=== PATIENT | female | born 1955 | race African-American/Black ===

== ENCOUNTER 2017-11-02 08:39 | Inpatient (IN) | payer OTHER ==
[2017-10-25 17:31] VITALS: BMI 43.4
--- NOTE | 2017-11-02 09:26 | HP ---
HISTORY OF PRESENT ILLNESS Patient is a 61 y/o female with a past medical history of hypertension and osteoarthritis. Patient was admitted today, 11/01/16, for an elective total knee replacement, Dr Hager. PCP: Dr Mccabe Recent travel: none Family History:non contributory to this admission Social History:none Smoking: none Alcohol:none Drugs: none REVIEW OF SYSTEMS CONSTITUTIONAL: Absent: fever, chills, diaphoresis, generalized weakness, malaise, loss of appetite, weight change HEENT: Absent: rhinorrhea, nasal congestion, throat pain, throat swelling, difficulty swallowing, mouth swelling, ear pain, eye pain, visual changes CARDIOVASCULAR: Absent: chest pain, syncope, palpitations, irregular heart rate, lightheadedness , peripheral edema RESPIRATORY: Absent: cough, shortness of breath, dyspnea with exertion, orthopnea, wheezing, stridor, hemoptysis GASTROINTESTINAL: Absent: abdominal pain, abdominal distension, nausea, vomiting, diarrhea, constipation, melena, hematochezia GENITOURINARY: Absent: dysuria, frequency, urgency, hesitancy, hematuria, flank pain, genital pain MUSCULOSKELETAL: Present: left knee pain Absent: myalgia, arthralgia, joint swelling, back pain, neck pain SKIN: Absent: rash, itching, pallor HEMATOLOGIC/IMMUNOLOGIC: Absent: easy bleeding, easy bruising, lymphadenopathy, frequent infections ENDOCRINE: Absent: unexplained weight gain, unexplained weight loss, heat intolerance, cold intolerance NEUROLOGIC: Absent: headache, focal weakness or paresthesias, dizziness, unsteady gait, seizure, mental status changes, bladder or bowel incontinence PSYCHIATRIC: Absent: anxiety, depression, suicidal or homicidal ideation, hallucinations. PHYSICAL EXAMINATION: GENERAL: Awake, alert, and fully oriented, in no acute distress. HEAD: Normal with no signs of trauma. EYES: Pupils equal, round and reactive to light, extraocular movements intact, sclera anicteric, conjunctiva clear. No lid lag. EARS, NOSE, THROAT: Ears normal, nares patent, oropharynx clear without exudates. Moist mucous membranes. NECK: Normal range of motion, supple without lymphadenopathy, JVD, or masses. LUNGS: Breath sounds equal, clear to auscultation bilaterally. No wheezes, and no crackles. No accessory muscle use. HEART: Regular rate and rhythm, normal S1 and S2 without murmur, rub or gallop. ABDOMEN: Soft, nontender, not distended, normoactive bowel sounds, no guarding, no rebound, no masses. No hepatomegaly or splenomegaly. MUSCULOSKELETAL: Normal range of motion at all joints. No bony deformities or tenderness. No CVA tenderness. UPPER EXTREMITIES: 2+ pulses, warm, well-perfused. No cyanosis. No clubbing. No peripheral edema. LOWER EXTREMITIES: 2+ pulses, warm, well-perfused. No calf tenderness. No peripheral edema. NEUROLOGICAL: Cranial nerves II-XII intact. Normal speech. Normal gait. PSYCHIATRIC: Cooperative. Good eye contact. Appropriate mood and affect. SKIN: Warm, dry, normal turgor, no rashes or lesions noted, normal capillary refill. ASSESSMENT/PLAN: F/E/N - npo, pending OR PPX - mechanical AC, hold chemical AC for OR Problem List - Problem (1) Osteoarthritis of knee Assessment/Plan: - pending OR today, Dr Hager Code(s): M17.10 - UNILATERAL PRIMARY OSTEOARTHRITIS, UNSPECIFIED KNEE (2) Hypertension Assessment/Plan: - continue metoprol and chloritadone, strict b/p monitoring, q4h Code(s): I10 - ESSENTIAL (PRIMARY) HYPERTENSION Visit type - Case Type Case Type: Scheduled Admission - Emergency Emergency Visit: No - New patient This patient is new to me today: Yes Date on this admission: 11/02/17 - Critical Care Critical Care patient: No
[2017-11-02] MEDS ORDERED: KETOROLAC TROMETHAMINE 30 MG/1 ML VIAL ONE (10:01)
[2017-11-02] MEDS ORDERED: DEXAMETHASONE SOD PHOSPHATE 4 MG/1 ML VIAL ONE (10:01)
[2017-11-02] MEDS ORDERED: ONDANSETRON 4 MG/2 ML VIAL ONE (10:01)
[2017-11-02] MEDS ORDERED: LIDOCAINE HCL/PF 2% SDV 5ML VIAL ONE (10:01)
[2017-11-02] MEDS ORDERED: PROPOFOL 20 ML ONE ×3 (10:02→13:39)
[2017-11-02] MEDS ORDERED: SUCCINYLCHOLINE CHLORIDE 200 MG/10 ML VIAL ONE (10:02)
[2017-11-02] MEDS ORDERED: MIDAZOLAM HCL 2 MG/2 ML SINGLE DOSE VIAL ONE ×2 (10:13→12:11)
[2017-11-02] MEDS ORDERED: BUPIVACAINE LIPOSOME/PF (EXPAREL) 266 MG/20 ML VIAL ONE (10:13)
[2017-11-02] MEDS ORDERED: BUPIVACAINE HCL/PF 2.5 MG/ML - 30 ML VIAL IJ ONE (10:14)
[2017-11-02] MEDS ORDERED: SODIUM CHLORIDE 0.9% P/F 10 ML VIAL IJ ONE (10:15)
[2017-11-02] MEDS ORDERED: DEXAMETHASONE SOD PHOSPHATE/PF 10 MG/ML SDV ONE (10:19)
[2017-11-02] MEDS ORDERED: ceFAZolin SODIUM 1 GM VIAL ONE (12:23)
[2017-11-02] MEDS ORDERED: ePHEDrine SULFATE 50 MG/1 ML AMPULE ONE (12:25)
[2017-11-02] MEDS ORDERED: TRANEXAMIC ACID 1000 MG/10 ML VIAL ONE (12:35)
[2017-11-02] MEDS ORDERED: VANCOMYCIN 1,000 MG VIAL (RESTRICTED TO ID ONLY) ONE (13:39)
[2017-11-02] MEDS ORDERED: BENZOIN/ALOE VERA/STORAX/TOLU 58 ML BOTTLE ONE (14:52)
--- NOTE | 2017-11-02 15:11 | OP ---
Operative Note - Note: Operative Date: 11/02/17 Pre-Operative Diagnosis: Left knee DJD Operation: Left total knee replacement Implants: [employer] - Cemented. Femur - 4. Tibia - 5. Poly - 9mm, PS. Patella - 27mm Surgeon: Car Hager Supervisor [employer]: Jef Hager (Co-Surgeon) Anesthesiologist/THIMBLE PRESS OPERATOR: Yefri Wood Anesthesia: Spinal, Epidural Specimens Removed: Bone, soft tissue Estimated Blood Loss (mls): 75 Drains & Tubes with Location: 1 x deep HemoVac Operative Report Dictated: Yes
[2017-11-02] MEDS ORDERED: MAGNESIUM HYDROX 2400MG/30ML ORAL SUSPENSION 30 ML CUP PO PRN (15:12)
[2017-11-02] MEDS ORDERED: ONDANSETRON 4 MG/2 ML VIAL IVPUSH PRN (15:12)
[2017-11-02] MEDS ORDERED: VANCOMYCIN 1 GRAM (PRE-DOCKED) 1,000 MG/250 ML BAG IVPB ONE (15:12)
[2017-11-02] MEDS ORDERED: MAG HYDROX/AL HYDROX/SIMETH 30 ML UNIT-DOSE CUP PO PRN (15:12)
[2017-11-02] MEDS ORDERED: LACTATED RINGERS SOLUTION 1,000 ML IV SCH (15:15)
[2017-11-02] MEDS ORDERED: oxyCODONE HCL 5 MG TABLET PO PRN (15:41)
[2017-11-02] MEDS ORDERED: ACETAMINOPHEN 325 MG TABLET (FP) ONE (16:08)
[2017-11-02] MEDS: ACETAMINOPHEN 325 MG TABLET (FP) PO SCH ×2 (16:38→21:50)
--- NOTE | 2017-11-02 18:40 | PN ---
Progress Note (short form) - Note Progress Note: 61F s/p L TKA POD #0. -Pain control. -DVT PPx: Chemical - ASA EC 81mg PO BID, Mechanical - MICHAEL's, SCD's. -Incentive spirometry/pulmonary toilet. -PT/OR/Rehab, OOB. -WBAT LLE. -(+) ice machine. -(+) CPM. -f/u TOV. -Diet as tolerated. -Taty-op Abx. -Care per medical hospitalist team. -d/c planning.
[2017-11-02] MEDS: oxyCODONE HCL 5 MG TABLET PO PRN (21:49)
[2017-11-02] MEDS: ASPIRIN 81 MG CHEWABLE TABLETS PO SCH (21:49)
[2017-11-02] MEDS: oxyCODONE HCL 10 MG SUSTAINED ACTING TABLET PO SCH (21:51)
[2017-11-02] MEDS: CEFAZOLIN 2 GM/D5W 2 GM/50 ML ML IVPB SCH (21:53)
[2017-11-02] MEDS: SENNOSIDES/DOCUSATE COMBO (SENNA PLUS) TABLET (UD) PO SCH (21:54)
[2017-11-03] MEDS ORDERED: VANCOMYCIN 1 GRAM (PRE-DOCKED) 1,000 MG/250 ML BAG IVPB ONE (01:00)
[2017-11-03] MEDS: ACETAMINOPHEN 325 MG TABLET (FP) PO SCH ×4 (03:45→22:17)
[2017-11-03] MEDS: oxyCODONE HCL 5 MG TABLET PO PRN ×3 (05:28→22:18)
[2017-11-03 08:16] LABS: HEMATOCRIT 38.6 % (32.4-45.2); HEMOGLOBIN 12.6 GM/dl (10.7-15.3); MCH 26.6 pg (25.7-33.7); MCHC 32.7 g/dl (32.0-36.0); MEAN CELL VOLUME 81.5 fl (80-96); MEAN PLT VOLUME 8.5 fl (7.5-11.1); PLATELET COUNT 249 K/MM3 (134-434); RBC 4.74 M/mm3 (3.60-5.2); RDW 13.4 % (11.6-15.6); WHITE BLOOD COUNT 16.1 K/mm3 (4.0-10.8)
--- NOTE | 2017-11-03 08:24 | OP ---
DATE OF OPERATION: 11/02/2017 SURGEON: Car Hager MD CO-SURGEON: Jef Hager MD PREOPERATIVE DIAGNOSIS: Tricompartment osteoarthritis, left knee. POSTOPERATIVE DIAGNOSIS: Tricompartment osteoarthritis, left knee. OPERATION PERFORMED: Left cemented, posterior-stabilized total knee arthroplasty (Elissa). ANESTHESIA: Spinal epidural with conscious sedation. ANTIBIOTICS GIVEN: Kefzol 2 g, vancomycin 1 g, Kefzol 1 g at the time of release of the tourniquet. OPERATION DETAILS: Patient correctly identified, brought to the operating room. Left lower extremity was prepped free, draped in the routine manner with Betadine scrub solution, wiped off with alcohol, DuraPrep applied. Imaging was available for intraoperative evaluation. Timeout was called. Under a bloodless field, a midline incision was performed, centered over the knee. The dissection was taken through subcutaneous tissue to the anterior musculature and parapatellar tissues on the medial side. A longitudinal incision made in the quadriceps tendon. This was carried around the medial aspect of the patella and the parapatellar tissues, right down to the medial aspect of the tibial tubercle. The patella was capsized laterally. The proximal tibial surface was freed of soft tissue neatly with a knife. Hohmann retractor was placed behind the cruciate ligaments after transection of the cruciate ligaments, subluxing the tibia forwards. A Hohmann was placed under the lateral meniscus to gain easy access to the actual tibial surface. The tibia was cut with extramedullary alignment jig placed into a neutral position, centered off the middle of the talus and the footprint of the anterior cruciate ligament. The extramedullary guide seema revealed excellent seating in terms of alignment along the shaft of the tibia and the medial aspect of the tibial tubercle. The cut was made with an oscillating saw. The tibial component was prepared appropriately to receive a size 5 tibial tray. The femur was then cut using the jig system. This was 4 degrees varus with a 3-degree external rotation. Catrachita's line was simulated. Joint line was not proximalized. Once the jig cuts were made, cuts were made from quadriceps tendon to patella ligament to receive a size 27-mm tray. The femur was measured size 4. Once the trialing components were inserted, excellent alignment achieved, full range of movement on the table, and the flexion and extension gaps were balanced and complete stability achieved. The bone bed was thoroughly lavaged with pulse lavage, and cementing was in 1 stage with the above-mentioned sizings performed. All extraneous cement was removed. The knee was placed through a full range of motion. Drop test revealed 120 degrees of flexion. Patella tracking was normal and an uncomplicated closure, quadriceps tendon and fascia 1 Vicryl, subcutaneous 1 and 2-0 Vicryl, skin 3-0 Monocryl with Steri-Strips. Drainage: 1/8-inch Hemovac x1. No complications. MD NATIVIDAD [id number]
[2017-11-03 08:29] LABS: ANION GAP 8 (8-16); BLOOD UREA NITROGEN 17 mg/dl (7-18); CALCIUM 8.7 mg/dl (8.4-10.2); CHLORIDE 95 mmol/L (98-107); CO2 27 mmol/L (22-28); CREATININE 0.9 mg/dl (0.6-1.3); GLUCOSE,RANDOM 142 mg/dl (74-106); SODIUM 130 mmol/L (136-145)
[2017-11-03] MEDS: CEFAZOLIN 2 GM/D5W 2 GM/50 ML ML IVPB SCH (09:31)
[2017-11-03] MEDS: ASPIRIN 81 MG CHEWABLE TABLETS PO SCH ×2 (09:32→22:17)
[2017-11-03] MEDS: PANTOPRAZOLE 40 MG TABLET (FP) PO SCH (09:32)
[2017-11-03] MEDS: METOPROLOL TARTRATE 50 MG TABLET (FP) PO SCH (09:33)
[2017-11-03] MEDS: SENNOSIDES/DOCUSATE COMBO (SENNA PLUS) TABLET (UD) PO SCH ×2 (09:33→22:18)
[2017-11-03] MEDS: oxyCODONE HCL 10 MG SUSTAINED ACTING TABLET PO SCH ×2 (09:34→22:18)
[2017-11-03] MEDS: CHLORTHALIDONE 25 MG TABLET PO SCH (09:34)
--- NOTE | 2017-11-03 10:34 | PN ---
Progress Note (short form) - Note Progress Note: 61F POD1 s/p left TKR under spinal anesthetic with peripheral nerve blocks for post operative pain control. Pt states that pain is well controlled, and reports no anesthetic complications. AVSS, motor function intact in bilateral lower extremities. Mild ipsilateral paresthesias improving as blocks wear off. Continue current regimen.
--- NOTE | 2017-11-03 13:48 | PN ---
Physical Exam: SUBJECTIVE: Patient seen and examined, reports feeling well, reports pain to the left lower extremity upon movement, denies any paresthiesia to the extrmeity OBJECTIVE:Patient is a 61 y/o female with a past medical history of hypertension and osteoarthritis, patient is s/p left total knee replacement ( Shein) Vital Signs Period Temp Pulse Resp BP Sys/Stark Pulse Ox Last 24 Hr 97.6 F-98.6 F 60-72 14-21 104-132/48-85 96-100 GENERAL: The patient is awake, alert, and fully oriented, in no acute distress. HEAD: Normal with no signs of trauma. EYES: PERRL, extraocular movements intact, sclera anicteric, conjunctiva clear. No ptosis. ENT: Ears normal, nares patent, oropharynx clear without exudates, moist mucous membranes. NECK: Trachea midline, full range of motion, supple. LUNGS: Breath sounds equal, clear to auscultation bilaterally, no wheezes, no crackles, no accessory muscle use. HEART: Regular rate and rhythm, S1, S2 without murmur, rub or gallop. ABDOMEN: Soft, nontender, nondistended, normoactive bowel sounds, no guarding, no rebound, no hepatosplenomegaly, no masses. EXTREMITIES: 2+ pulses, warm, well-perfused, no edema. LEFT LOWER EXTREMITY: hemovac, scant serrous drainage, dressing CDI, scd/devora NEUROLOGICAL: Cranial nerves II through XII grossly intact. Normal speech, gait not observed. PSYCH: Normal mood, normal affect. SKIN: Warm, dry, normal turgor, no rashes or lesions noted Laboratory Results - last 24 hr 11/03/17 11/03/17 07:45 07:45 WBC 16.1 H RBC 4.74 Hgb 12.6 Hct 38.6 MCV 81.5 MCH 26.6 MCHC 32.7 RDW 13.4 Plt Count 249 MPV 8.5 Sodium 130 L Potassium 4.0 Chloride 95 L Carbon Dioxide 27 Anion Gap 8 BUN 17 Creatinine 0.9 Random Glucose 142 H Calcium 8.7 Active Medications Generic Name Dose Route Start Last Admin Trade Name Freq PRN Reason Stop Dose Admin Acetaminophen 650 mg 11/02/17 15:45 11/03/17 09:31 Tylenol - PO 11/05/17 15:44 650 mg Q6H TORREY Administration Al Hydroxide/Mg Hydroxide 30 ml 11/02/17 15:12 Mylanta Oral Suspension - PO Q4H PRN DYSPEPSIA Aspirin 81 mg 11/02/17 22:00 11/03/17 09:32 Asa - PO 81 mg BID TORREY Administration Chlorthalidone 25 mg 11/03/17 10:00 11/03/17 09:34 Hygroton - PO 25 mg DAILY TORREY Administration Fentanyl 50 mcg 11/02/17 15:41 Sublimaze Injection - IVPUSH [id number] PRN PAIN-PACU ORDER X 4 DOSES ONLY Magnesium Hydroxide 30 ml 11/02/17 15:12 Milk Of Magnesia - PO PRN PRN CONSTIPATION Metoprolol Tartrate 100 mg 11/03/17 10:00 11/03/17 09:33 Lopressor - PO 100 mg DAILY TORREY Administration Ondansetron HCl 4 mg 11/02/17 15:12 Zofran Injection IVPUSH Q6H PRN NAUSEA Oxycodone HCl 5 mg 11/02/17 15:41 Roxicodone - PO Q3H PRN PAIN LEVEL 1-5 Oxycodone HCl 10 mg 11/02/17 15:41 11/03/17 05:28 Roxicodone - PO 10 mg Q3H PRN Administration PAIN LEVEL 6-10 Oxycodone HCl 10 mg 11/02/17 22:00 11/03/17 09:34 Oxycontin - PO 11/05/17 15:42 10 mg BID TORREY Administration Pantoprazole Sodium 40 mg 11/03/17 10:00 11/03/17 09:32 Protonix - PO 40 mg DAILY TORREY Administration Senna/Docusate Sodium 2 tablet 11/02/17 22:00 11/03/17 09:33 Pericolace - PO 2 tablet BID TORREY Administration ASSESSMENT/PLAN: 1) ms s/p left TKR , POD #1 - prn pain medication - physical therapy as per the orthopedist - incentive spiromter - monitor hgb, stable 2) cardiovascular hypertension - continue metoprol and chloritadone, strict b/p monitoring, q4h F/E/N - low sodium PPX -= asa - pt - protonix dispo: patient requires inpatient admission Problem List - Problems (1) Osteoarthritis of knee Code(s): M17.10 - UNILATERAL PRIMARY OSTEOARTHRITIS, UNSPECIFIED KNEE (2) Hypertension Code(s): I10 - ESSENTIAL (PRIMARY) HYPERTENSION Visit type - Emergency Visit Emergency Visit: No - New Patient This patient is new to me today: No - Critical Care Critical Care patient: No - Discharge Referral Referred to [facility] Med P.C.: No
[2017-11-04] MEDS: ACETAMINOPHEN 325 MG TABLET (FP) PO SCH ×2 (03:46→09:13)
[2017-11-04 05:10] VITALS: TEMP 98.6
[2017-11-04] MEDS: oxyCODONE HCL 5 MG TABLET PO PRN (06:06)
[2017-11-04 09:10] LABS: HEMATOCRIT 37.2 % (32.4-45.2); HEMOGLOBIN 12.4 GM/dl (10.7-15.3); MCH 27.5 pg (25.7-33.7); MCHC 33.4 g/dl (32.0-36.0); MEAN CELL VOLUME 82.3 fl (80-96); MEAN PLT VOLUME 8.8 fl (7.5-11.1); PLATELET COUNT 208 K/MM3 (134-434); RBC 4.52 M/mm3 (3.60-5.2); RDW 13.4 % (11.6-15.6); WHITE BLOOD COUNT 14.6 K/mm3 (4.0-10.8)
[2017-11-04] MEDS: CHLORTHALIDONE 25 MG TABLET PO SCH (09:13)
[2017-11-04] MEDS: ASPIRIN 81 MG CHEWABLE TABLETS PO SCH (09:13)
[2017-11-04] MEDS: oxyCODONE HCL 10 MG SUSTAINED ACTING TABLET PO SCH (09:14)
[2017-11-04] MEDS: SENNOSIDES/DOCUSATE COMBO (SENNA PLUS) TABLET (UD) PO SCH (09:14)
[2017-11-04] MEDS: PANTOPRAZOLE 40 MG TABLET (FP) PO SCH (09:14)
[2017-11-04] MEDS: METOPROLOL TARTRATE 50 MG TABLET (FP) PO SCH (09:15)
[2017-11-04 09:17] VITALS: BP 114/64; PULSE 80
--- NOTE | 2017-11-04 12:03 | DS ---
Physical Exam: SUBJECTIVE: Patient seen and examined, reports feeling well, denies any chest pain or shortness of breath, ambulaing the hallways with a walker, denies any paresthesia to the extremity. OBJECTIVE: Patient is a 61 y/o female with a past medical history of hypertension and osteoarthritis. Patient was admitted 11/01/16, for an elective total knee replacement, Dr Hager. Vital Signs Temperature 98.6 F 11/04/17 09:00 Pulse Rate 80 11/04/17 09:00 Respiratory Rate 19 11/04/17 09:00 Blood Pressure 114/64 11/04/17 09:00 O2 Sat by Pulse Oximetry (%) 99 11/04/17 05:09 PHYSICAL EXAM GENERAL: The patient is awake, alert, and fully oriented, in no acute distress. HEAD: Normal with no signs of trauma. EYES: PERRL, extraocular movements intact, sclera anicteric, conjunctiva clear. ENT: Ears normal, nares patent, oropharynx clear without exudates, moist mucous membranes. NECK: Trachea midline, full range of motion, supple. LUNGS: Breath sounds equal, clear to auscultation bilaterally, no wheezes, no crackles, no accessory muscle use. HEART: Regular rate and rhythm, S1, S2 without murmur, rub or gallop. ABDOMEN: Soft, nontender, nondistended, normoactive bowel sounds, no guarding, no rebound, no hepatosplenomegaly, no masses. EXTREMITIES: 2+ pulses, warm, well-perfused, no edema. LEFT LOWER EXTREMITY: aguacel dressing clean dry and intact, hemovac drain removed, no drainage noted, no erythema and no induration, SCD/MICHAEL, less than 3 second capillary refill, +3 pedal pulse. NEUROLOGICAL: Cranial nerves II through XII grossly intact. Normal speech, gait not observed. PSYCH: Normal mood, normal affect. SKIN: Warm, dry, normal turgor, no rashes or lesions noted. LABS CBC,CMP WBC 14.6 K/mm3 (4.0-10.8) H 11/04/17 08:00 RBC 4.52 M/mm3 (3.60-5.2) 11/04/17 08:00 Hgb 12.4 GM/dl (10.7-15.3) 11/04/17 08:00 Hct 37.2 % (32.4-45.2) 11/04/17 08:00 MCV 82.3 fl (80-96) 11/04/17 08:00 MCH 27.5 pg (25.7-33.7) 11/04/17 08:00 MCHC 33.4 g/dl (32.0-36.0) 11/04/17 08:00 RDW 13.4 % (11.6-15.6) 11/04/17 08:00 Plt Count 208 K/MM3 (134-434) 11/04/17 08:00 MPV 8.8 fl (7.5-11.1) 11/04/17 08:00 Sodium 130 mmol/L (136-145) L 11/03/17 07:45 Potassium 4.0 mmol/L (3.5-5.1) 11/03/17 07:45 Chloride 95 mmol/L (98-107) L 11/03/17 07:45 Carbon Dioxide 27 mmol/L (22-28) 11/03/17 07:45 Anion Gap 8 (8-16) 11/03/17 07:45 BUN 17 mg/dl (7-18) 11/03/17 07:45 Creatinine 0.9 mg/dl (0.6-1.3) 11/03/17 07:45 Random Glucose 142 mg/dl (74-106) H 11/03/17 07:45 Calcium 8.7 mg/dl (8.4-10.2) 02 07:45 HOSPITAL COURSE: The patient was admitted to the [facility] after an elective left total knee replacement. On postopertive day 1, the patient ambulated the hallways with assistance. Narcotic and non-narcotic pain management control was achieved with an oral and IV approach. POD #2, the surgical drain was removed fully intact and without incident. kam-operative IV ABX were administered. DVT prophylaxis was achieved with SCDs and early ambulation. The patient ambulated with Physical Therapy and she will receive home services. Narcotic scripts and or muscle relaxants were checked with [facility] FUNDING SPECIALIST prior to escibe. The discharge instructions and an oral pain management plan were reviewed with the patient. All questions answered. Above plan discussed with Dr. Hager and agreed. Date of Admission:11/02/17 Date of Discharge: 11/04/17 Minutes to complete discharge: 45 Visit type - Case Type Case Type: Scheduled Admission - Emergency Emergency Visit: No - New patient This patient is new to me today: No - Critical Care Critical Care patient: No
--- NOTE | 2017-11-04 12:47 | PN ---
Progress Note (short form) - Note Progress Note: 61F doing well s/p L TKA POD #2. Pain well controlled. No acute events overnight. Pt. denies overnight history of chest pain, shortness of breath, nausea, vomiting, chills, and sweats. (+) Voiding; (?) Flatus; (?) BM. All labs and vital signs reviewed. PE: AAO x 3, NAD. LLE: Dressing C/D/I. NV assessment at baseline. A/P: 61F doing well s/p L TKA POD #2. -Pain control. -DVT PPx: Chemical - ASA EC 81mg PO BID x 6 weeks, Mechanical - MICHAEL's, SCD's. -Incentive spirometry/pulmonary toilet. -PT/OR/Rehab, OOB. -WBAT LLE. -(+) ice machine. -(+) CPM. -Diet as tolerated. -Care per medical hospitalist team. -d/c planning.
--- NOTE | 2017-11-04 14:23 | PATH ---
Surgical Pathology Report Patient Name: LILIANA KAT Med. Rec. #: [id number] /Age/Gender: 1955 (Age: 61) / F Account: [id number] Location: [facility] MED-SURG Taken: 11/02/2017 Received: 11/02/2017 Reported: 11/04/2017 Physicians: Car Hager M.D. Specimen(s) Received LEFT KNEE BONES Clinical History Left knee osteoarthritis Final Diagnosis BONE AND SOFT TISSUE, LEFT KNEE, REPLACEMENT: DEGENERATIVE JOINT DISEASE. Electronically Signed Giorgi Katz M.D. Gross Description Received in formalin labeled "left knee bones," is an 11.0 x 10.0 x 2.0 cm aggregate of multiple mandel-yellow, irregular portions of bone and soft tissue. The tibial plateau measures 8.1 x 5.0 x 1.4 cm. There are no areas of eburnation identified. The articular surfaces are mandel-yellow and focally granular. The underlying trabecular bone is yellow and hard. [place] sections are submitted in one cassette, following decalcification. 11/03/201711/03/2017
== END 2017-11-04 12:26 | disposition home health service (06) | DRG 470 ==
LOC: FM/S 08:39
PROVIDERS: ADMIT Orthopaedic Surgery Orthopaedic Surgery of the Spine; ATTEND Orthopaedic Surgery Orthopaedic Surgery of the Spine
PROC: 0SRD0J9 Replacement of Left Knee Joint with Synthetic Substitute, Cemented, Open Approach (ICD-10-PCS; principal; 2017-11-02 13:30)
DX: M17.12 Unilateral primary osteoarthritis, left knee (principal); I10 Essential (primary) hypertension
CPT/HCPCS: 36415; 73560-TC-LT-FY; 80048; 85027; 88304-TC; 88311-TC; 94010; 94760; 97116-GP; 97162-GP